=== PATIENT | male | born 1980 | race Caucasian/White ===

== ENCOUNTER → 2016-09-01 | Outpatient (CLI) | payer MEDICAID ==
[2016-09-01 11:27] LABS: Basophils % (A) 0 %; CH 31.9; CHCM 34.7; Eosinophils # (A) 0.1 k/uL (0-0.7); Eosinophils % (A) 1 %; HCT 44.6 % (39.0-53.0); HDW 2.74; Luc # (Auto) 0.11; Luc % (Auto) 2; Lymphocytes # (A) 1.1 k/uL (1.0-4.8); Lymphocytes % (A) 23 %; MCH 31.1 pg (25.0-35.0); MCHC 33.8 g/dL (31.0-37.0); MCV 92.3 fL (80.0-100.0); Mean Platelet Volume 7.3; Monocytes # (A) 0.3 k/uL (0-1.0); Monocytes % (A) 6 %; Neutrophils # (A) 3.1 k/uL (1.3-7.7); Neutrophils % (A) 67 %; RBC 4.83 m/uL (4.30-5.90); RDW 12.9 % (11.5-15.5); WBC 4.7 k/uL (3.8-10.6); WBC (Perox) 4.71
--- NOTE | 2016-09-01 11:57 | XR ---
EXAMINATION TYPE: XR ankle limited RT DATE OF EXAM: 09/01/2016 10:25 AM COMPARISON: NONE HISTORY: Ankle pain TECHNIQUE: 2 view right ankle FINDINGS: No acute fractures are evident. The ankle mortise appears intact. Soft tissues are normal. IMPRESSION: 1. Normal 2 view right ankle
[2016-09-01 12:53] LABS: ALT 24 U/L (21-72); AST 18 U/L (17-59); Alkaline Phosphatase 48 U/L (38-126); Anion Gap 9 mmol/L; Blood Urea Nitrogen 11 mg/dL (9-20); Calcium 9.8 mg/dL (8.4-10.2); Carbon Dioxide 32 mmol/L (22-30); Chloride 102 mmol/L (98-107); Glucose 92 mg/dL (74-99); Non-African American GFR(MDRD) >60 (>60 ml/min/1.73 sqM); Potassium 4.6 mmol/L (3.5-5.1); Sodium 143 mmol/L (137-145); Total Bilirubin 0.9 mg/dL (0.2-1.3); Total Protein 7.4 g/dL (6.3-8.2)
[2016-09-01 13:38] LABS: Vitamin B12 182 pg/mL (239-931)
== END | disposition home or self-care (01) ==
LOC: RADXRMAIN 10:06
PROVIDERS: ATTEND Nurse Practitioner Acute Care
DX: M25.571 Pain in right ankle and joints of right foot (principal); G35 Multiple sclerosis; E55.9 Vitamin D deficiency, unspecified
CPT/HCPCS: 36415; 80053; 82306; 82607; 84439; 84443; 84481; 85025

== ENCOUNTER → 2016-09-23 | Outpatient (CLI) | payer MEDICAID ==
--- NOTE | 2016-09-23 09:51 | MR ---
EXAMINATION TYPE: MR lumbar spine wo con DATE OF EXAM: 09/23/2016 9:18 AM COMPARISON: NONE HISTORY: lumbago Multiplanar, MultiSpin echo imaging of the lumbar spine was performed. L1-L2: Normal disc appearance without desiccation. No herniation, protrusion or disc bulging. No ca nal stenosis is present. Foramina are patent bilaterally. L2-L3: Normal disc appearance without desiccation. No herniation, protrusion or disc bulging. No ca nal stenosis is present. Foramina are patent bilaterally. L3-L4: Normal disc appearance without desiccation. No herniation, protrusion or disc bulging. No ca nal stenosis is present. Foramina are patent bilaterally. L4-L5: Minimal disc desiccation noted posteriorly. Minimal disc bulging identified. No herniation pro trusion or central stenosis. Foramina are patent bilaterally. L5-S1: Minimal disc desiccation noted posteriorly. Minimal disc bulging identified. No herniation pro trusion or central stenosis. Foramina are patent bilaterally. Lumbar segments are intact. No paraspinal masses are identified. Conus medullaris has a normal appe arance. IMPRESSION: 1. Minimal disc desiccation and disc bulging as discussed.
--- NOTE | 2016-09-23 10:06 | MR ---
MRI BRAIN WITH CONTRAST CLINICAL HISTORY: MS follow-up TECHNIQUE: Multiplanar, multisequence imaging of the brain and brainstem is performed without and wit h IV contrast, the cc of Gadolinium is administered intravenously. Demyelinating disease protocol wi th additional Sagittal Flair sequence performed. Comparison: 05/06/2015 FINDINGS: T2 Lesions Present : Yes Approximate Number of Lesions: 40 Locations Identified : Pericallosal and periventricular in location. Left cerebral peduncle lesion is stable. Quinteros finger morphology. Size of Largest Lesion(s): Largest lesion measures 8 mm right frontal lobe. Enhancing Lesion(s) Present: None Change from Prior: Overall stable appearance. Diffusion weighted images demonstrate no evidence of a recent infarct or other diffusion abnormality. There is no worrisome extra-axial fluid collection. The ventricular system and cisternal spaces ar e normal in size and appearance. The brain volume is age appropriate. Midline structures demonstrate normal morphology. The craniocervical junction appears within normal limits. Post contrast images demonstrate no abnormal enhancement. The dural venous sinuses appear pa tent. Chronic right-sided mastoiditis. IMPRESSION: 1. Stable features of multiple sclerosis.
== END | disposition home or self-care (01) ==
LOC: RADMRIMAIN 08:13
PROVIDERS: ATTEND Nurse Practitioner Acute Care
DX: G35 Multiple sclerosis (principal); M51.26 Other intervertebral disc displacement, lumbar region
CPT/HCPCS: 70553; 72148; A9577

== ENCOUNTER → 2016-12-08 | Outpatient (CLI) | payer MEDICAID | END | disposition home or self-care (01) | LOC: LABWHC1 12:05 | PROVIDERS: ATTEND Nurse Practitioner Acute Care | DX: E55.9 Vitamin D deficiency, unspecified (principal) | CPT/HCPCS: 36415; 82306 ==

== ENCOUNTER → 2016-12-23 | Outpatient (CLI) | payer MEDICAID ==
[2016-12-23 12:35] LABS: Basophils % (A) 1 %; CHCM 35.5; Eosinophils % (A) 1 %; HCT 43.7 % (39.0-53.0); HDW 2.68; HGB 15.1 gm/dL (13.0-17.5); Luc # (Auto) 0.07; Luc % (Auto) 2; Lymphocytes # (A) 1.2 k/uL (1.0-4.8); Lymphocytes % (A) 27 %; MCH 32.2 pg (25.0-35.0); MCHC 34.6 g/dL (31.0-37.0); MCV 93.1 fL (80.0-100.0); Monocytes # (A) 0.3 k/uL (0-1.0); Monocytes % (A) 6 %; Neutrophils # (A) 2.8 k/uL (1.3-7.7); Neutrophils % (A) 64 %; RDW 13.4 % (11.5-15.5); WBC 4.3 k/uL (3.8-10.6); WBC (Perox) 4.53
[2016-12-23 13:17] LABS: ALT 31 U/L (21-72); AST 18 U/L (17-59); Alkaline Phosphatase 57 U/L (38-126); Anion Gap 10 mmol/L; Blood Urea Nitrogen 12 mg/dL (9-20); Calcium 9.6 mg/dL (8.4-10.2); Carbon Dioxide 27 mmol/L (22-30); Chloride 106 mmol/L (98-107); Glucose 94 mg/dL (74-99); Non-African American GFR(MDRD) >60 (>60 ml/min/1.73 sqM); Potassium 4.1 mmol/L (3.5-5.1); Sodium 143 mmol/L (137-145); Total Bilirubin 0.7 mg/dL (0.2-1.3); Total Protein 6.9 g/dL (6.3-8.2)
[2016-12-23 14:04] LABS: Vitamin B12 193 pg/mL (239-931)
== END | disposition home or self-care (01) ==
LOC: LABWHC1 11:53
PROVIDERS: ATTEND Psychiatry & Neurology Pain Medicine
DX: G35 Multiple sclerosis (principal); E53.9 Vitamin B deficiency, unspecified
CPT/HCPCS: 36415; 80053; 82607; 85025

== ENCOUNTER → 2017-05-30 | Outpatient (CLI) | payer MEDICAID ==
--- NOTE | 2017-05-30 09:44 | MR ---
EXAMINATION TYPE: MR cervical spine wo/w con DATE OF EXAM: 05/30/2017 COMPARISON: NONE HISTORY: MS TECHNIQUE: Multiplanar, multisequence images of the cervical spine were acquired utilizing 7.5 mL intravenous Ga davist gadolinium contrast. Diffusion weighted imaging was performed. FINDINGS: Cervical vertebral bodies maintain normal vertebral body height and alignment. Minimal multilevel dis c desiccation is noted. Cervical spinal cord maintains a normal signal and morphology without focal d emyelinating plaque identified. No abnormal enhancement is seen within the cervical cord. Visualized portions of the posterior fossa are also unremarkable. C2-C3: No evidence for degenerative disc disease. No disc bulge/herniation or protrusion. No Canal stenosis. Foramina are patent bilaterally. C3-C4: Mild left facet arthropathy and uncovertebral hypertrophy are seen minimally narrowing the lef t neural foramen. Right neural foramen and spinal canal are patent. C4-C5: No evidence for degenerative disc disease. No disc bulge/herniation or protrusion. No Canal stenosis. Foramina are patent bilaterally. C5-C6: There is a right paracentral disc herniation minimally narrowing the ventral subarachnoid spac e without impression upon the cervical cord. No resultant neural foraminal narrowing is seen. Minimal spinal canal stenosis. C6-C7: No evidence for degenerative disc disease. No disc bulge/herniation or protrusion. No Canal stenosis. Foramina are patent bilaterally. C7-T1: No evidence for degenerative disc disease. No disc bulge/herniation or protrusion. No Canal stenosis. Foramina are patent bilaterally. Craniovertebral junction relationships are within normal limits. IMPRESSION: 1. No focal abnormal cord signal to suggest demyelinating cervical cord plaque in this patient with a history of multiple sclerosis. No abnormal enhancement throughout the cervical cord. 2. Right paracentral disc herniation creating minimal spinal canal stenosis at C5-C6. No neural s[place] inal narrowing. 3. Degenerative changes at C3-C4 creating minimal left neural foraminal narrowing.
== END | disposition home or self-care (01) ==
LOC: RADMRIMAIN 07:42
PROVIDERS: ATTEND Psychiatry & Neurology Pain Medicine
DX: M48.02 Spinal stenosis, cervical region (principal); M99.71 Connective tissue and disc stenosis of intervertebral foramina of cervical region; M50.20 Other cervical disc displacement, unspecified cervical region; M47.812 Spondylosis without myelopathy or radiculopathy, cervical region
CPT/HCPCS: 72156; A9581

== ENCOUNTER → 2017-07-05 | Outpatient (CLI) | payer MEDICAID | END | disposition home or self-care (01) | LOC: LABWHC1 15:43 | PROVIDERS: ATTEND Psychiatry & Neurology Pain Medicine | DX: R00.2 Palpitations (principal) | CPT/HCPCS: 93005 ==

== ENCOUNTER 2017-11-15 14:30 | Emergency (ER) | payer MEDICAID ==
[2017-11-15 14:35] VITALS: TEMP 98.2
[2017-11-15] MEDS ORDERED: SODIUM CHLORIDE 0.9% 1,000 ML IV ONE (15:20)
--- NOTE | 2017-11-15 15:40 | ED ---
Abdominal Pain HPI - General Chief Complaint: Abdominal Pain Stated Complaint: right side pain/vomiting Time Seen by Provider: 11/15/17 14:40 Source: patient Mode of arrival: ambulatory Limitations: no limitations - History of Present Illness Initial Comments: This is a 36-year-old male past medical history of MS who presents today for chief complaint of left sided abdominal pain, and vomiting. Patient states that for the past week he has had on and off watery stools, denies hematochezia. Around 1 p.m. he began feeling nauseous and had 1 episode of emesis-denies hematemesis. Shortly after the episode of vomiting he noticed left-sided abdominal pain that radiated to the back. He admitted to decreased appetite today. Patient denies fever or chills, right-sided abdominal pain, chest pain, shortness of breath, dizziness, pallor, diaphoresis, dysuria, urgency, hematuria, frequency, urgency. In addition pt denies any recent fever, chills, shortness of breath, chest pain, back pain, numbness or tingling, dysuria or hematuria, constipation, headaches or visual changes, or any other complaints. - Related Data Home Medications Medication Instructions Recorded Confirmed Tecfidera 240 mg PO BID 09/10/13 11/15/17 Ampyra 100mg 100 mg PO Q12H 11/15/17 11/15/17 Baclofen [Lioresal] 20 mg PO TID 11/15/17 11/15/17 Naltrax 4.5 Mg 4.5 mg PO HS 11/15/17 11/15/17 Allergies Allergy/AdvReac Type Severity Reaction Status Date / Time No Known Allergies Allergy Verified 11/15/17 14:45 Review of Systems ROS Statement: Those systems with pertinent positive or pertinent negative responses have been documented in the HPI. ROS Other: All systems not noted in ROS Statement are negative. Constitutional: Denies: fever, chills Eyes: Denies: eye pain, vision change ENT: Denies: ear pain, throat pain Respiratory: Denies: cough, dyspnea, hemoptysis Cardiovascular: Denies: chest pain, palpitations, edema Endocrine: Denies: fatigue Gastrointestinal: Reports: as per HPI, abdominal pain, nausea, vomiting, diarrhea. Denies: constipation, hematemesis, melena, hematochezia Genitourinary: Denies: urgency, dysuria, frequency, hematuria, testicular pain Musculoskeletal: Reports: as per HPI. Denies: joint swelling, arthralgia Skin: Denies: rash, lesions Neurological: Denies: headache, weakness, numbness, paresthesias Past Medical History Additional Past Medical History / Comment(s): MULTIPLE SCLEROSIS History of Any Multi-Drug Resistant Organisms: None Reported Additional Past Surgical History / Comment(s): HYDROCELE REMOVAL/ORAL SURG Past Anesthesia/Blood Transfusion Reactions: No Reported Reaction Past Psychological History: No Psychological Hx Reported Smoking Status: Never smoker Past Alcohol Use History: Occasional Past Drug Use History: None Reported General Exam - General Exam Comments Initial Comments: General: The patient is awake and alert, in no distress, and does not appear acutely ill. Eye: Pupils are equal, round and reactive to light, extra-ocular movements are intact. No nystagmus. There is normal conjunctiva bilaterally. No signs of icterus. Ears, nose, mouth and throat: There are moist mucous membranes and no oral lesions. Neck: The neck is supple, there is no tenderness or JVD. Cardiovascular: There is a regular rate and rhythm. No murmur, rub or gallop is appreciated. Respiratory: Lungs are clear to auscultation, respirations are non-labored, breath sounds are equal. No wheezes, stridor, rales, or rhonchi. Gastrointestinal: Inspection of abdomen no scars, striae, erythema or ecchymosis. Soft, non-distended, without pulsatile masses, masses or organomegaly noted. Tenderness to palpation of LUQ, epigastric regions. Remainding 3 abdominal quadrants without tenderness to palpation. There is no rebound or guarding present. No CVA tenderness. Bowel sounds are unremarkable.No signs of perineal irritation (-) heel jar, obturator. Musculoskeletal: Normal ROM, no tenderness. Strength 5/5. Sensation intact. Pulses equal bilaterally 2+. Neurological: A&O x 3. CN II-XII intact, There are no obvious motor or sensory deficits. Coordination appears grossly intact. Speech is normal. Skin: Skin is warm and dry and no rashes or lesions are noted. Psychiatric: Cooperative, appropriate mood & affect, normal judgment. Limitations: no limitations Course Vital Signs 11/15/17 11/15/17 14:33 17:02 Temperature 98.2 F Pulse Rate 72 85 Respiratory 20 18 Rate Blood Pressure 116/71 127/73 O2 Sat by Pulse 99 99 Oximetry Medical Decision Making - Medical Decision Making This is a 36-year-old male past medical history of MS who presents today for chief complaint of left sided abdominal pain, and vomiting. Patient states that for the past week he has had on and off watery stools, denies hematochezia. Around 1 p.m. he began feeling nauseous and had 1 episode of emesis-denies hematemesis. Shortly after the episode of vomiting he noticed left-sided abdominal pain that radiated to the back. He admitted to decreased appetite today. Patient denies fever or chills, right-sided abdominal pain, chest pain, shortness of breath, dizziness, pallor, diaphoresis, dysuria, urgency, hematuria, frequency, urgency. In addition pt denies any recent fever, chills, shortness of breath, chest pain, back pain, numbness or tingling, dysuria or hematuria, constipation, headaches or visual changes, or any other complaints. Physical exam revealed mild epigastric and LUQ pain, (-) CVA tenderness. KUB, UA, CBC, CMP, lipase and amylase WNL. We discussed that a kidney stone was possible diagnosis and we cannot exclude the diagnosis without a CT. His was worried about a AAA but given no risk factors, or pulsatile mass, equal LE pulses, that this was not a likely diagnosis but we cannot rule it out without further imagine. Pt called while I was in room i discussed the results of testing so far today. They decided to not have a CT although I had already order the CT. Pt was persistent on not having one due to cost. I urged CT, and I told him to come into the emergency department if symptoms worsen or change. Pt agreed. Case was discussed in detail with Dr. Jalloh who agrees with the plan at this time. Pt was discharged in stable condition with dx of abdominal pain and told to f/u with PCP in 1-2 days. - Lab Data Result diagrams: 11/15/17 15:45 11/15/17 15:45 Lab Results 11/15/17 11/15/17 11/15/17 Range/Units 15:45 15:45 16:15 WBC 4.8 (3.8-10.6) k/uL RBC 4.79 (4.30-5.90) m/uL Hgb 14.9 (13.0-17.5) gm/dL Hct 42.8 (39.0-53.0) % MCV 89.3 (80.0-100.0) fL MCH 31.1 (25.0-35.0) pg MCHC 34.8 (31.0-37.0) g/dL RDW 12.2 (11.5-15.5) % Plt Count 194 (150-450) k/uL Neutrophils % 68 % Lymphocytes % 22 % Monocytes % 7 % Eosinophils % 1 % Basophils % 1 % Neutrophils # 3.3 (1.3-7.7) k/uL Lymphocytes # 1.1 (1.0-4.8) k/uL Monocytes # 0.3 (0-1.0) k/uL Eosinophils # 0.1 (0-0.7) k/uL Basophils # 0.0 (0-0.2) k/uL Sodium 141 (137-145) mmol/L Potassium 4.3 (3.5-5.1) mmol/L Chloride 101 (98-107) mmol/L Carbon Dioxide 30 (22-30) mmol/L Anion Gap 10 mmol/L BUN 11 (9-20) mg/dL Creatinine 0.72 (0.66-1.25) mg/dL Est GFR (CKD-EPI)AfAm >90 (>60 ml/min/1.73 sqM) Est GFR (CKD-EPI)NonAf >90 (>60 ml/min/1.73 sqM) Glucose 94 (74-99) mg/dL Calcium 9.6 (8.4-10.2) mg/dL Total Bilirubin 0.7 (0.2-1.3) mg/dL AST 19 (17-59) U/L ALT 29 (21-72) U/L Alkaline Phosphatase 49 (38-126) U/L Total Protein 7.1 (6.3-8.2) g/dL Albumin 4.6 (3.5-5.0) g/dL Amylase 61 (30-110) U/L Lipase 95 (23-300) U/L Urine Color Yellow Urine Appearance Clear (Clear) Urine pH 7.0 (5.0-8.0) Ur Specific Shubuta 1.015 (1.001-1.035) Urine Protein Negative (Negative) Urine Glucose (UA) Negative (Negative) Urine Ketones 2+ H (Negative) Urine Blood Negative (Negative) Urine Nitrite Negative (Negative) Urine Bilirubin Negative (Negative) Urine Urobilinogen <2.0 (<2.0) mg/dL Ur Leukocyte Esterase Negative (Negative) Disposition Clinical Impression: Abdominal pain Disposition: HOME SELF-CARE Condition: Good Instructions: Abdominal Pain (ED) Additional Instructions: Please follow-up with family doctor in the next 2 days.. Please return to emergency room if the symptoms increase or worsen or for any other concerns. Is patient prescribed a controlled substance at d/c from ED?: No Referrals: None,Stated [Primary Care Provider] - 1-2 days Time of Disposition: 16:54
--- NOTE | 2017-11-15 15:41 | XR ---
EXAMINATION TYPE: XR KUB DATE OF EXAM: 11/15/2017 3:29 PM CLINICAL HISTORY: Left-sided abdominal pain and vomiting TECHNIQUE: Two Upright KUB images of the abdomen are obtained. COMPARISON: None. FINDINGS: There is some paucity of bowel gas. Gas is seen in nondistended stomach. Gas is noted in no ndistended small and large bowel loops scattered throughout the abdomen and pelvis. Left-sided pelvic phleboliths are seen. Lung bases are clear. No pneumoperitoneum is present. Visualized osseous struc tures are intact. IMPRESSION: Overall nonspecific but favor nonobstructive bowel gas pattern.
[2017-11-15 15:55] LABS: Basophils % (A) 1 %; Eosinophils # (A) 0.1 k/uL (0-0.7); Eosinophils % (A) 1 %; HCT 42.8 % (39.0-53.0); HGB 14.9 gm/dL (13.0-17.5); Lymphocytes # (A) 1.1 k/uL (1.0-4.8); Lymphocytes % (A) 22 %; MCH 31.1 pg (25.0-35.0); MCHC 34.8 g/dL (31.0-37.0); MCV 89.3 fL (80.0-100.0); Mean Platelet Volume 7.3; Monocytes # (A) 0.3 k/uL (0-1.0); Monocytes % (A) 7 %; Neutrophils # (A) 3.3 k/uL (1.3-7.7); Neutrophils % (A) 68 %; Platelet Count 194 k/uL (150-450); RBC 4.79 m/uL (4.30-5.90); RDW 12.2 % (11.5-15.5); WBC 4.8 k/uL (3.8-10.6)
[2017-11-15 16:05] LABS: ALT 29 U/L (21-72); AST 19 U/L (17-59); Albumin 4.6 g/dL (3.5-5.0); Alkaline Phosphatase 49 U/L (38-126); Amylase 61 U/L (30-110); Anion Gap 10 mmol/L; Blood Urea Nitrogen 11 mg/dL (9-20); Calcium 9.6 mg/dL (8.4-10.2); Carbon Dioxide 30 mmol/L (22-30); Chloride 101 mmol/L (98-107); Glucose 94 mg/dL (74-99); Lipase 95 U/L (23-300); Potassium 4.3 mmol/L (3.5-5.1); Sodium 141 mmol/L (137-145); Total Bilirubin 0.7 mg/dL (0.2-1.3); Total Protein 7.1 g/dL (6.3-8.2)
[2017-11-15 16:26] LABS: Appearance,Urine Clear (Clear); Bilirubin,Urine Negative (Negative); Blood,Urine Negative (Negative); Color,Urine Yellow; Glucose,Urine (UA) Negative (Negative); Ketones,Urine 2+ (Negative); Leukocyte Esterase,Urine Negative (Negative); Nitrite,Urine Negative (Negative); Protein,Urine Negative (Negative); Specific Gravity,Urine 1.015 (1.001-1.035); Urobilinogen,Urine <2.0 mg/dL (<2.0)
[2017-11-15 17:04] VITALS: BP 127/73; PULSE 85; RESP 18
== END 2017-11-15 17:03 | disposition home or self-care (01) ==
LOC: EC 14:30
DX: R10.9 Unspecified abdominal pain (principal); R11.2 Nausea with vomiting, unspecified; G35 Multiple sclerosis; Z98.890 Other specified postprocedural states; Z79.899 Other long term (current) drug therapy
CPT/HCPCS: 36415; 74018; 80053; 81003; 82150; 83690; 85025; 96360; 99284

== ENCOUNTER → 2018-06-27 | Outpatient (CLI) | payer MEDICAID ==
--- NOTE | 2018-06-28 09:15 | MR ---
EXAMINATION TYPE: MR brain/orbits wo/w con DATE OF EXAM: 06/27/2018 COMPARISON: 05/17/2013 MRI brain HISTORY: Dizziness, luba ext weakness/numbness, MS CONTRAST: Performed utilizing 7 mL intravenous Gadavist gadolinium contrast. TECHNIQUE: Multiplanar, multisequence imaging of the brain is performed on a 3.0 Joan magnet. Demye linating disease protocol with additional Sagittal Flair sequence is performed. Study is performed wi thin 24 hours of arrival to the hospital. Dedicated orbital images were obtained. FINDINGS: T2 White Matter Lesions Present : Yes Approximate Number of Lesions: Multiple scattered. There appear to be at least 16 right 17 on the le ft. Locations Identified : Subcortical U fibers, periventricular bilaterally. In number of these are perp endicular to the ventricle which can be suggestive for, although not diagnostic of, multiple sclerosi s. Size of Largest Lesion(s): 1. 0.0 x 0.8 x 0.9 cm. Location: Right frontal lobe periventricular white matter Sequence 901 Image 21 (axial) and Sequence 1001 Image 24 (sagittal). This may be ring-enhancing corresponds to the diffu moncho-weighted imaging. 2. 0.9 x 0.5 x 0.7 cm. Location: Left periventricular Sequence 901 Image 20 (axial) and Sequence 10 01 Image 14 (sagittal). Enhancing Lesion(s) Present: Yes Change from Prior: Stable in appearance, in number, as well as distribution. Diffusion-weighted imaging is performed. Small area of increased signal is in the right centrum semi ovale posterior right frontal lobe. Series 305 image 168. Small plaque may be present. This could co rrespond to a possible ring lesion or other white matter changes identified on inversion recovery. Th is diffusion-weighted changes new. Ventricles and sulci are appropriate for the patient age. Dedicated images are performed through the orbits. The globes are symmetrical. Intraconal and extraco nal fat is normal. Extraocular muscles are unremarkable. Optic nerves appear normal and symmetrical. No abnormalities. The optic chiasm is visualized. The pituitary stalk is midline. There are no abnormal extra-axial fluid collections. The ventricular system and cisternal spaces are normal in size and appearance. The brain volume is age appropriate. The craniocervical junction cassandra ears within normal limits. The dural venous sinuses appear patent. IMPRESSION: 1. Multiple bilateral deep white matter changes which can be compatible with multiple sclerosis in p kathi clinical setting. 2. There may be new diffusion signal abnormality within the right centrum semiovale periventricular p laque. 3. Distribution and appearance white matter changes otherwise appears stable from comparison. 4 Orbits and optic nerves as visualized appear normal.
== END ==
LOC: RADMRIMAIN 15:39
PROVIDERS: ATTEND Psychiatry & Neurology Neurology
DX: R90.89 Other abnormal findings on diagnostic imaging of central nervous system (principal)
CPT/HCPCS: 70543; 70553; A9585

== ENCOUNTER → 2018-07-10 | Outpatient (CLI) | payer MEDICAID ==
[2018-07-10 08:39] LABS: HCT 46.5 % (39.0-53.0); HGB 15.5 gm/dL (13.0-17.5); MCH 31.3 pg (25.0-35.0); MCHC 33.3 g/dL (31.0-37.0); MCV 93.8 fL (80.0-100.0); Mean Platelet Volume 6.5; Platelet Count 188 k/uL (150-450); RBC 4.95 m/uL (4.30-5.90); RDW 12.9 % (11.5-15.5)
[2018-07-10 08:51] LABS: ALT 36 U/L (21-72); AST 18 U/L (17-59); Albumin 4.3 g/dL (3.5-5.0); Alkaline Phosphatase 50 U/L (38-126); Anion Gap 7 mmol/L; Blood Urea Nitrogen 14 mg/dL (9-20); Calcium 9.7 mg/dL (8.4-10.2); Carbon Dioxide 28 mmol/L (22-30); Chloride 106 mmol/L (98-107); Creatine Kinase 24 U/L (55-170); Glucose 90 mg/dL (74-99); Potassium 4.7 mmol/L (3.5-5.1); Sodium 141 mmol/L (137-145); Total Bilirubin 1.2 mg/dL (0.2-1.3); Total Protein 6.8 g/dL (6.3-8.2)
--- NOTE | 2018-07-10 12:21 | MR ---
MRI CERVICAL SPINE: CLINICAL HISTORY: Multiple sclerosis per order. Headaches with right arm pain or weakness per patient . TECHNIQUE: Multiplanar, multisequence imaging of the cervical spine is performed without and with IV contrast, 7.5 cc of gadolinium was given intravenously. Demyelinating disease protocol. COMPARISON: Most recent MRI cervical spine May 30, 2017 FINDINGS: Sagittal images of the cervical spine show the craniocervical junction to appear within nor mal limits. There are suspected two vague T2 hyperintense lesions in the upper cervical spinal cord, one diffusely involves the mid to inferior C2 vertebra measuring roughly 1.4 cm long axis with a seco nd wider lesion near the craniocervical junction both identified sagittal image 7, in retrospect they may have been present on prior study. Suspect additional smaller third lesion posteriorly superior C 6 level seen best on PD sagittal sequence. Cannot exclude 2 additional vague lesion C4 level sagittal image 7 left well-seen on T2 sagittal images. There is diminished AP diameter of the spinal cord bel ow C6-C7 disc space. In retrospect no significant change from prior MRI. Vertebral alignment is stable and anatomic. The vertebral body and intravertebral disk heights are n ormal. Tiny posterior disc herniation C5-C6 level is redemonstrated on sagittal image 7. The bone ma rrow signal intensity is within normal limits. No abnormal enhancement is seen. Axial images redemonstrates right paracentral disc protrusion at C5-C6 level mildly effacing anterola teral thecal sac, bilateral neural foramina are patent. No significant change from prior. There is mc spected focal disc lesion posteriorly just right of midline with subtle T2 hyperintense signal seen i mage 42 at the superior C4 level, in retrospect this was present on prior study and corresponds to th e PD sagittal image. No enhancing cord lesions identified. IMPRESSION: I do suspect vague multifocal demyelinating disease involvement in the cervical spinal co rd as detailed above. In retrospect I felt they were present on prior MRI. No enhancing lesions are i dentified. No significant change from prior MRI with degenerative change C5-C6 level also redemonstra luis manuel.
== END | disposition home or self-care (01) ==
LOC: RADMRIMAIN 08:03
PROVIDERS: ATTEND Psychiatry & Neurology Neurology
DX: G35 Multiple sclerosis (principal); M62.81 Muscle weakness (generalized)
CPT/HCPCS: 80053; 82550; 85027; 72156; A9585

== ENCOUNTER → 2018-07-21 | Outpatient (CLI) | payer MEDICAID ==
[2018-07-21 16:27] LABS: T4, Free (Free Thyroxine) 1.4 ng/dL (0.80-1.80); Vitamin D 25 Hydroxy 19.7 ng/mL (30.0-100.0)
[2018-07-21 16:30] LABS: Folate, Serum 13.2 ng/mL
[2018-07-21 17:02] LABS: Hepatitis B Core IgM Non-Reactive (Non-Reactive); Hepatitis B Surface AB- Quant 3.5 mIU/mL
[2018-07-21 17:28] LABS: HIV 1 AB Non-Reactive (Non-Reactive); HIV AB P24 Non-Reactive (Non-Reactive); HIV P24 AG Non-Reactive (Non-Reactive)
== END | disposition home or self-care (01) ==
LOC: LABWHC1 10:00
PROVIDERS: ATTEND Psychiatry & Neurology Pain Medicine
DX: G35 Multiple sclerosis (principal)
CPT/HCPCS: 36415; 82306; 82607; 82746; 84207; 84425; 84439; 84443; 84481; 84591; 86705; 86706; 87340; 87390

== ENCOUNTER → 2018-09-21 | Outpatient (CLI) | payer MEDICAID ==
[2018-09-21 13:29] LABS: Appearance,Urine Clear (Clear); Bilirubin,Urine Negative (Negative); Blood,Urine Negative (Negative); Color,Urine Yellow; Glucose,Urine (UA) Negative (Negative); Ketones,Urine Negative (Negative); Leukocyte Esterase,Urine Negative (Negative); Nitrite,Urine Negative (Negative); PH, Urine 5.5 (5.0-8.0); Protein,Urine Negative (Negative); Specific Gravity,Urine 1.027 (1.001-1.035); Urobilinogen,Urine <2.0 mg/dL (<2.0)
[2018-09-21 19:07] LABS: Vitamin D 25 Hydroxy 42.6 ng/mL (30.0-100.0)
== END | disposition home or self-care (01) ==
LOC: LABWHC1 11:52
PROVIDERS: ATTEND Psychiatry & Neurology Neurology
DX: G35 Multiple sclerosis (principal); E53.9 Vitamin B deficiency, unspecified; E55.9 Vitamin D deficiency, unspecified
CPT/HCPCS: 36415; 81003; 82306; 82607; 84207; 87086

== ENCOUNTER → 2018-09-27 | Outpatient (CLI) | payer MEDICAID ==
--- NOTE | 2018-09-27 14:12 | MR ---
EXAMINATION TYPE: MR thoracic spine wo/w con DATE OF EXAM: 09/27/2018 COMPARISON: 05/16/2013, 07/10/2018 HISTORY: MS CONTRAST: Standard multiplanar, multisequence MRI departmental protocol utilizing 7 mL intravenous Gadavist nina olinium contrast. FINDINGS: The recently noted areas of abnormal signal in the cervical spinal cord is seen on the loca lizer image. At the level of T2-T3, T10-11, and T9-T10 there is vague increased signal within the spinal cord. No enhancement at any of the levels. At T5-T6 there is left paracentral disc bulging. Minimal disc bulging paracentrally left at T5-6 and T6-T7 Central disc tiny protrusion T8-T9. Mild effacement of thecal sac but no spinal cord contact. Alignment is anatomic. There is multilevel mild degenerative disc disease. No compression deformities . No foraminal or canal stenosis. IMPRESSION: 1. There is multifocal vague areas of increased signal within the spinal cord with no evidence of enh ancement at levels T2-3, T10-11, and T9-T10 correlate for myelitis. 2. Multilevel disc bulging with tiny disc protrusion at T8-T9 but no evidence of canal stenosis or fo raminal encroachment.
== END ==
LOC: RADMRIMAIN 09:45
PROVIDERS: ATTEND Psychiatry & Neurology Neurology
DX: M51.24 Other intervertebral disc displacement, thoracic region (principal); G35 Multiple sclerosis
CPT/HCPCS: 72157; A9585

== ENCOUNTER → 2018-09-29 | Outpatient (CLI) | payer MEDICAID ==
--- NOTE | 2018-09-29 15:53 | US ---
EXAMINATION TYPE: US bladder DATE OF EXAM: 09/29/2018 COMPARISON: NONE CLINICAL HISTORY: MS,FREQ URINATION. frequent urination, MS EXAM MEASUREMENTS: Color Doppler performed to assess ureteral jets. Bilateral Jets seen: no Normal Post Void Residual (less than 50ml): no Post void residual is 69.76 mm IMPRESSION: 1. Mild urinary retention.
== END | disposition home or self-care (01) ==
LOC: RADUSWWP 14:55
PROVIDERS: ATTEND Psychiatry & Neurology Neurology
DX: R33.9 Retention of urine, unspecified (principal); R35.0 Frequency of micturition; N31.9 Neuromuscular dysfunction of bladder, unspecified; G35 Multiple sclerosis
CPT/HCPCS: 76857

== ENCOUNTER → 2019-06-28 | Outpatient (CLI) | payer MEDICAID ==
[2019-06-28 10:05] LABS: Basophils % (A) 0 %; Eosinophils % (A) 1 %; HCT 42.8 % (39.0-53.0); HGB 14.8 gm/dL (13.0-17.5); Lymphocytes # (A) 0.7 k/uL (1.0-4.8); Lymphocytes % (A) 24 %; MCH 31.6 pg (25.0-35.0); MCHC 34.6 g/dL (31.0-37.0); MCV 91.4 fL (80.0-100.0); Mean Platelet Volume 8.4; Monocytes # (A) 0.2 k/uL (0-1.0); Monocytes % (A) 6 %; Neutrophils # (A) 2.1 k/uL (1.3-7.7); Neutrophils % (A) 66 %; Platelet Count 174 k/uL (150-450); RBC 4.68 m/uL (4.30-5.90); RDW 12.2 % (11.5-15.5); WBC 3.1 k/uL (3.8-10.6)
[2019-06-28 14:52] LABS: Appearance,Urine Clear (Clear); Color,Urine Yellow; Specific Gravity,Urine 1.005 (1.001-1.035)
[2019-06-28 14:53] LABS: Bilirubin,Urine Negative (Negative); Blood,Urine Negative (Negative); Glucose,Urine (UA) Negative (Negative); Ketones,Urine Negative (Negative); Leukocyte Esterase,Urine Negative (Negative); Nitrite,Urine Negative (Negative); Protein,Urine Negative (Negative); Urobilinogen,Urine <2.0 mg/dL (<2.0)
[2019-06-28 16:16] LABS: Albumin 4.6 g/dL (3.80-4.90); Albumin/Globulin Ratio 2.42 (1.60-3.17); Anion Gap 4.9 mmol/L (4.00-12.00); BUN/Creat Ratio 12.22 Ratio (12.00-20.00); Calcium 9.8 mg/dL (8.7-10.3); Carbon Dioxide 32.1 mmol/L (21.6-31.8); Chol/HDL Ratio 2.66; Globulin 1.9 g/dL (1.6-3.3); LDL Cholesterol,Calculated 41.2 mg/dL (0.0-131.0); Non-African American GFR(CKD) 108.7 (60.0-200.0); Total Bilirubin 0.8 mg/dL (0.2-1.2); Total Protein 6.5 g/dL (6.2-8.2); VLDL Calculation 16.8 mg/dL (5.00-40.00)
[2019-06-28 17:33] LABS: Hemoglobin A1C 4.3 % (4.0-6.0)
== END | disposition home or self-care (01) ==
LOC: LABWHC1 09:10
PROVIDERS: ATTEND Family Medicine
DX: Z00.00 Encounter for general adult medical examination without abnormal findings (principal); R35.0 Frequency of micturition; N52.9 Male erectile dysfunction, unspecified; G35 Multiple sclerosis; T50.905A Adverse effect of unspecified drugs, medicaments and biological substances, initial encounter
CPT/HCPCS: 36415; 80053; 80061; 81003; 83036; 84153; 84402; 84403; 84443; 85025

== ENCOUNTER → 2019-08-10 | Outpatient (CLI) | payer MEDICAID ==
[2019-08-10 12:23] LABS: Basophils % (A) 1 %; Eosinophils # (A) 0.1 k/uL (0-0.7); Eosinophils % (A) 2 %; HCT 42.5 % (39.0-53.0); HGB 14.6 gm/dL (13.0-17.5); Lymphocytes # (A) 1.2 k/uL (1.0-4.8); Lymphocytes % (A) 27 %; MCH 31.8 pg (25.0-35.0); MCHC 34.4 g/dL (31.0-37.0); MCV 92.6 fL (80.0-100.0); Mean Platelet Volume 8.4; Monocytes # (A) 0.3 k/uL (0-1.0); Monocytes % (A) 7 %; Neutrophils # (A) 2.8 k/uL (1.3-7.7); Neutrophils % (A) 61 %; Platelet Count 185 k/uL (150-450); RBC 4.59 m/uL (4.30-5.90); RDW 12.4 % (11.5-15.5); WBC 4.6 k/uL (3.8-10.6)
== END | disposition home or self-care (01) ==
LOC: LABWHC1 10:23
PROVIDERS: ATTEND Family Medicine
DX: D72.819 Decreased white blood cell count, unspecified (principal); E55.9 Vitamin D deficiency, unspecified
CPT/HCPCS: 36415; 82306; 85025

== ENCOUNTER → 2019-12-24 | Outpatient (CLI) | payer MEDICAID ==
--- NOTE | 2019-12-25 07:57 | MR ---
EXAMINATION TYPE: MR brain/cspine wo/w DATE OF EXAM: 12/24/2019 COMPARISON: MRI brain June 27, 2018. MRI cervical spine May 17, 2013. HISTORY: MS TECHNIQUE: Multiplanar, multisequence images of the cervical spine, brain, and brainstem are all performed witho ut and with IV contrast, utilizing 7 mL intravenous Gadavist gadolinium contrast is administered intr avenously. Demyelinating disease protocol with additional Sagittal Flair sequence performed. BRAIN: FINDINGS: T2 Lesions Present : Yes Approximate Number of Lesions: Approximately 40 Locations Identified : Scattered but greatest periventricular and pericallosal levels. Smaller superi or subcortical lesions redemonstrated. Bilateral superior temporal lesions noted . Size of Reference Lesion(s): 1. 1.0 x 0.9 x 0.7 cm on axial image 20 and sagittal image 25 deep right frontal periventricular lesi on stable 2 0.9 x 0.5 x 0.6 cm on axial image 19 and sagittal image 14 left parietal periventricular lesion sta ble Enhancing Lesion(s) Present: No T1 Hypointense Lesion(s) Present: Yes Change from Prior: Stable Diffusion weighted images demonstrate no evidence of a recent infarct or other diffusion abnormality. There is no worrisome extra-axial fluid collection. The ventricular system and cisternal spaces ar e normal in size and appearance. The brain volume is age appropriate. Midline structures redemonstrate normal morphology. The craniocervical junction appears within arcenio l limits. Post contrast images demonstrate no abnormal enhancement. The dural venous sinuses appear patent. Few tiny mucous retention cysts and/or polyps in the left frontal sinus are thought to remai n present. The visualized sinuses are otherwise clear and the globes are intact. IMPRESSION: Fairly moderate white matter changes redemonstrated felt to be on basis of patient's know n multiple sclerosis. No new or enhancing lesions are evident. C-SPINE: Slightly suboptimal study due to motion artifact degradation. FINDINGS: Sagittal images of the cervical spine show the craniocervical junction to appear within nor mal limits. The cervical and upper thoracic spinal cord is normal in course, caliber, and signal. V ertebral alignment is anatomic. The vertebral body and intravertebral disk heights are normal. The bone marrow signal intensity is within normal limits. No suspicious postcontrast enhancement. Axial images show there is no significant focal disk disease, spinal canal stenosis, neural foraminal narrowing, or spinal cord compromise at any cervical level. Artifact degradation noted evaluation mc boptimal. IMPRESSION: Suboptimal study without convincing evidence of new demyelinating disease involvement in the cervical spinal cord.
== END | disposition home or self-care (01) ==
LOC: RADMRIMAIN 06:07
PROVIDERS: ATTEND Psychiatry & Neurology Neurology
DX: G35 Multiple sclerosis (principal)
CPT/HCPCS: 70553; 72156; A9585

== ENCOUNTER → 2019-12-28 | Outpatient (CLI) | payer MEDICAID ==
--- NOTE | 2019-12-28 07:26 | MR ---
EXAMINATION TYPE: MR thoracic spine wo/w con DATE OF EXAM: 12/28/2019 COMPARISON: NONE HISTORY: MS TECHNIQUE: Multiplanar, multisequence imaging of thoracic spine is performed without and with IV cont rast, patient injected with 7 cc of gadolinium this study. FINDINGS: Spinal cord demonstrates slight expansion and increased signal from the mid T1 vertebra thr ough the superior T3 disc space similar to prior study seen best sagittal image 8. There is additiona lly elongated vague T2 hyperintense lesion from the mid T8 vertebra through the mid-T9 vertebra sagit merced image 7. Findings felt stable from prior study. No new lesions clearly seen. No enhancing lesions evident. Vertebral body heights and alignment remain satisfactory. Some multilevel disc desiccation upper to midthoracic spine remains present. Bone marrow signal intensity is preserved. Persistent tin y posterior disc herniation effacing anterior thecal sac at T5-T6 level sagittal image 7. Review of the axial images shows stable tiny central disc protrusion at T6-T7 level effacing the ante rior thecal sac axial image 3 series 801 and right paracentral region axial image 14 series 701 at T8 -T9 level. Spinal cord vague T2 hyperintense lesions less well seen on axial or sagittal images. Vis ualized thorax and upper abdomen are unremarkable. No suspicious enhancement is noted. IMPRESSION: No significant change from prior MRI. 2 lesions or areas of involvement are felt present , one in the upper thoracic spine and second lesion in the mid to lower thoracic spine. No new or enh ancing lesions evident.
== END | disposition home or self-care (01) ==
LOC: RADMRIMAIN 05:54
PROVIDERS: ATTEND Psychiatry & Neurology Neurology
DX: G35 Multiple sclerosis (principal)
CPT/HCPCS: 72157; A9585

== ENCOUNTER → 2021-06-10 | Outpatient (CLI) | payer MEDICAID ==
[2021-06-10 19:21] LABS: Basophils # (A) 0.02 X 10*3/uL (0.00-0.10); Basophils % (A) 0.4 %; Eosinophils # (A) 0.07 X 10*3/uL (0.04-0.35); Eosinophils % (A) 1.4 %; HCT 42.3 % (39.6-50.0); HGB 14.3 g/dL (13.0-17.0); Lymphocytes # (A) 1.51 X 10*3/uL (0.90-5.00); Lymphocytes % (A) 30.8 %; MCH 31.9 pg (27.0-32.0); MCHC 33.8 g/dL (32.0-37.0); MCV 94.4 fL (80.0-97.0); Mean Platelet Volume 11.3 fL (9.5-12.2); Monocytes # (A) 0.35 X 10*3/uL (0.20-1.00); Monocytes % (A) 7.1 %; Neutrophils # (A) 2.94 X 10*3/uL (1.80-7.70); Neutrophils % (A) 60.1 %; Platelet Count 185 X 10*3/uL (140-440); RBC 4.48 X 10*6/uL (4.40-5.60); RDW 11.9 % (11.5-14.5)
[2021-06-10 20:10] LABS: African American GFR (CKD) 132.6 (60.0-200.0); Albumin 4.7 g/dL (3.8-4.9); Albumin/Globulin Ratio 2.44 (1.60-3.17); Anion Gap 10.4 mmol/L (10.00-18.00); BUN/Creat Ratio 17.43 Ratio (12.00-20.00); Blood Urea Nitrogen 13.4 mg/dL (9.0-27.0); Calcium 9.6 mg/dL (8.7-10.3); Carbon Dioxide 28.3 mmol/L (20.0-27.5); Globulin 1.9 g/dL (1.6-3.3); Non-African American GFR(CKD) 114.4 (60.0-200.0); Potassium 4.6 mmol/L (3.5-5.5); Total Bilirubin 0.3 mg/dL (0.30-1.20); Total Protein 6.7 g/dL (6.2-8.2)
== END | disposition home or self-care (01) ==
LOC: LABWHC1 10:47
PROVIDERS: ATTEND Psychiatry & Neurology Neurology
DX: E53.9 Vitamin B deficiency, unspecified (principal)
CPT/HCPCS: 36415; 80053; 82607; 84207; 85025

== ENCOUNTER → 2022-02-19 | Outpatient (CLI) | payer MEDICAID ==
--- NOTE | 2022-02-19 15:13 | MR ---
EXAMINATION TYPE: MR brain/cspine wo/w DATE OF EXAM: 02/19/2022 COMPARISON: 12/24/2019 HISTORY: 41-year-old male G3 5, MS TECHNIQUE: Multiplanar, multisequence images of the brain and brainstem is performed without and with IV contrast, utilizing 7 mL intravenous Gadavist gadolinium contrast is administered intravenously. Demyelinating disease protocol with additional Sagittal Flair sequence performed. Subsequently pre a nd postcontrast multiplanar cervical spine. FINDINGS: BRAIN: T2 Lesions Present : Yes Approximate Number of Lesions: 20-25 in the left cerebral hemisphere and approximately 20 in the righ t cerebral hemisphere. Locations Identified : Periventricular, left thalamic, pericallosal, and a couple subcortical foci. Size of Reference Lesion(s): 1. 10 x 9 mm anterior right periventricular axial image 18, unchanged. 2 10 x 5 mm posterior left periventricular, axial image 18, unchanged. Enhancing Lesion(s) Present: Yes T1 Hypointense Lesion(s) Present: Yes Change from Prior: Lesions are largely stable. However, there is 1 new 6 mm focus of white matter enh ancement along the anterior left periventricular region, axial image 18. Diffusion weighted images demonstrate no evidence of a recent infarct or other diffusion abnormality. There is no worrisome extra-axial fluid collection. The ventricular system and cisternal spaces ar e normal in size and appearance. The brain volume is age appropriate. Midline structures demonstrate normal morphology. The craniocervical junction appears within normal limits. Post contrast images demonstrate no other abnormal enhancement. The dural venous sinuses appear paten t. Mild mucosal thickening ethmoid air cells. Globes are intact. CERVICAL SPINE: No precervical junction of the body, predental space finding, or prevertebral soft tissue swelling. Preserved alignment of the cervical spine. No suspicious bone marrow replacement. Minimal scattered i ntervertebral disc desiccation throughout. Scattered mild facet arthropathy. There may be minimal narrowing of the left neural foramen at the C4 -C5 level and C3-C4 level. No focal disc herniation or significant spinal canal stenosis. Sagittal PD shows possible very subtle areas of bright signal change, for example, opposite the C2 [place], dorsal right paramedian C3-C4 level, and ventral C6-C7 level. No corresponding postcontrast enhancement. IMPRESSION: BRAIN: 1. Moderate burden of white matter change relating to patient's known MS. Findings are largely stable . However, there is a single new 6 mm enhancing plaque anterior left periventricular white matter. CERVICAL SPINE: 2. Unable to exclude very subtle areas of bright signal at 3 levels within the cervical spinal cord a s mentioned above. Subtle demyelinating plaques not excluded. No enhancing lesions.
== END | disposition home or self-care (01) ==
LOC: RADMRIMAIN 13:13
PROVIDERS: ATTEND Psychiatry & Neurology Neurology
DX: G35 Multiple sclerosis (principal)
CPT/HCPCS: 70553; 72156; A9585

== ENCOUNTER → 2022-03-04 | Outpatient (CLI) | payer MEDICAID ==
[2022-03-04 13:37] LABS: Appearance,Urine Clear (Clear); Bilirubin,Urine Negative (Negative); Blood,Urine Negative (Negative); Color,Urine Yellow; Glucose,Urine (UA) Negative (Negative); Ketones,Urine Negative (Negative); Leukocyte Esterase,Urine Negative (Negative); Nitrite,Urine Negative (Negative); Protein,Urine Negative (Negative); Urobilinogen,Urine <2.0 mg/dL (<2.0)
[2022-03-04 18:24] LABS: Basophils # (A) 0.03 X 10*3/uL (0.00-0.10); Basophils % (A) 0.6 %; Eosinophils # (A) 0.03 X 10*3/uL (0.04-0.35); Eosinophils % (A) 0.6 %; HCT 42.4 % (39.6-50.0); HGB 14.3 g/dL (13.0-17.0); Immature Grans, Automated 0.2 %; Lymphocytes # (A) 1.17 X 10*3/uL (0.90-5.00); Lymphocytes % (A) 23.1 %; MCH 31.6 pg (27.0-32.0); MCHC 33.7 g/dL (32.0-37.0); MCV 93.8 fL (80.0-97.0); Mean Platelet Volume 11.6 fL (9.5-12.2); Monocytes # (A) 0.37 X 10*3/uL (0.20-1.00); Monocytes % (A) 7.3 %; NRBC Per 100 WBC 0 /100 WBCS (0.0-0.0); Neutrophils # (A) 3.45 X 10*3/uL (1.80-7.70); Neutrophils % (A) 68.2 %; Platelet Count 187 X 10*3/uL (140-440); RBC 4.52 X 10*6/uL (4.40-5.60); RDW 11.9 % (11.5-14.5); WBC 5.06 X 10*3/uL (4.50-10.00)
[2022-03-04 19:47] LABS: African American GFR (CKD) 129.5 (60.0-200.0); Albumin 4.8 g/dL (3.8-4.9); Anion Gap 9.2 mmol/L (10.00-18.00); BUN/Creat Ratio 15.13 Ratio (12.00-20.00); Blood Urea Nitrogen 12.1 mg/dL (9.0-27.0); Calcium 9.7 mg/dL (8.7-10.3); Carbon Dioxide 30.8 mmol/L (20.0-27.5); Globulin 2.4 g/dL (1.6-3.3); Non-African American GFR(CKD) 111.7 (60.0-200.0); Potassium 4.2 mmol/L (3.5-5.5); Total Bilirubin 0.2 mg/dL (0.30-1.20); Total Protein 7.2 g/dL (6.2-8.2)
== END | disposition home or self-care (01) ==
LOC: LABWHC1 12:05
PROVIDERS: ATTEND Psychiatry & Neurology Neurology
DX: G35 Multiple sclerosis (principal); Z79.899 Other long term (current) drug therapy
CPT/HCPCS: 36415; 80053; 81003; 85025

== ENCOUNTER → 2022-03-06 | Outpatient (CLI) | payer MEDICAID ==
--- NOTE | 2022-03-07 15:56 | MR ---
EXAMINATION TYPE: MR thoracic spine wo/w con DATE OF EXAM: 03/06/2022 COMPARISON: 12/28/2019 HISTORY: MS follow up, no new symptoms. CONTRAST: Performed utilizing 7.5 mL intravenous Gadavist gadolinium contrast. TECHNIQUE: Multiplanar, multiecho imaging on a 3.0 Joan magnet is performed through the thoracic spi ne. There is increased signal within the spinal cord on the sagittal T2-weighted sequences the T1-2 level extending to the T2-3 level. This extends approximately 2.2 cm. This appears to be present previous ly There is some subtle increased signal within the spinal cord on sagittal T2-weighted images at T8-9 e xtending through the T9 level. This extends 3.1 cm. This was present on the comparison study. A subtle upper intensity may be within the at the T11-12 level within the spinal cord. This extends 1 .0 cm. This appears to be new. No enhancement of these lesions is evident. Cord expansion is not identified in the axial plane. Sign al change appears diffuse axial T2 images. Vertebral body alignment is normal. Vertebral body heights are preserved. Disc heights are preserved. Some disc desiccation is present within the thoracic spine. No spinal canal stenosis is evident. IMPRESSIONS: 1. New hyperintense lesion within the spinal cord at the T11-12 level. Reidentification of upper and mid thoracic spine cord signal abnormality. Findings can be compatible with multiple sclerosis plaqu es.
== END | disposition home or self-care (01) ==
LOC: RADMRIMAIN 10:24
PROVIDERS: ATTEND Psychiatry & Neurology Neurology
DX: G35 Multiple sclerosis (principal); G95.9 Disease of spinal cord, unspecified
CPT/HCPCS: 72157; A9585

== ENCOUNTER → 2022-08-02 | Outpatient (CLI) | payer MEDICAID ==
[2022-08-02 11:36] LABS: Appearance,Urine Clear (Clear); Bilirubin,Urine Negative (Negative); Blood,Urine Negative (Negative); Color,Urine Yellow; Glucose,Urine (UA) Negative (Negative); Ketones,Urine Negative (Negative); Leukocyte Esterase,Urine Negative (Negative); Nitrite,Urine Negative (Negative); PH, Urine 5.5 (5.0-8.0); Protein,Urine Negative (Negative); Specific Gravity,Urine 1.019 (1.001-1.035); Urobilinogen,Urine <2.0 mg/dL (<2.0)
[2022-08-02 18:16] LABS: Basophils # (A) 0.02 X 10*3/uL (0.00-0.10); Basophils % (A) 0.5 %; Eosinophils # (A) 0.04 X 10*3/uL (0.04-0.35); HCT 43.6 % (39.6-50.0); HGB 14.3 g/dL (13.0-17.0); Immature Grans, Automated 0.3 %; Lymphocytes # (A) 1.22 X 10*3/uL (0.90-5.00); MCH 31.1 pg (27.0-32.0); MCHC 32.8 g/dL (32.0-37.0); MCV 94.8 fL (80.0-97.0); Mean Platelet Volume 10.7 fL (9.5-12.2); Monocytes # (A) 0.26 X 10*3/uL (0.20-1.00); Monocytes % (A) 6.6 %; NRBC Per 100 WBC 0 /100 WBCS (0.0-0.0); Neutrophils # (A) 2.39 X 10*3/uL (1.80-7.70); Neutrophils % (A) 60.6 %; Platelet Count 178 X 10*3/uL (140-440); WBC 3.94 X 10*3/uL (4.50-10.00)
[2022-08-02 19:21] LABS: ALT 14 U/L (10-49); AST 15 U/L (14-35); African American GFR (CKD) 123.4 (60.0-200.0); Albumin 4.7 g/dL (3.8-4.9); Albumin/Globulin Ratio 2.24 (1.60-3.17); Alkaline Phosphatase 54 U/L (41-126); BUN/Creat Ratio 14.33 Ratio (12.00-20.00); Blood Urea Nitrogen 12.9 mg/dL (9.0-27.0); Calcium 9.6 mg/dL (8.7-10.3); Carbon Dioxide 31.8 mmol/L (20.0-27.5); Chloride 106 mmol/L (96-109); Chol/HDL Ratio 3.17 Ratio; Globulin 2.1 g/dL (1.6-3.3); Glucose 91 mg/dL (70-110); LDL Cholesterol,Calculated 68.1 mg/dL (0.0-131.0); Non-African American GFR(CKD) 106.5 (60.0-200.0); Potassium 4.6 mmol/L (3.5-5.5); Sodium 145 mmol/L (135-145); Total Protein 6.8 g/dL (6.2-8.2)
== END | disposition home or self-care (01) ==
LOC: LABWHC1 10:09
PROVIDERS: ATTEND Family Medicine
DX: Z00.00 Encounter for general adult medical examination without abnormal findings (principal); Z12.5 Encounter for screening for malignant neoplasm of prostate; Z13.1 Encounter for screening for diabetes mellitus
CPT/HCPCS: 36415; 80053; 80061; 81003; 82306; 83036; 84153; 84443; 85025

== ENCOUNTER → 2023-08-09 | Outpatient (CLI) | payer MEDICAID ==
[2023-08-09 16:02] LABS: Basophils # (A) 0.03 X 10*3/uL (0.00-0.10); Basophils % (A) 0.7 %; Eosinophils # (A) 0.03 X 10*3/uL (0.04-0.35); Eosinophils % (A) 0.7 %; HCT 46.6 % (39.6-50.0); HGB 15.6 g/dL (13.0-17.0); Immature Grans, Automated 0 %; Lymphocytes # (A) 1.17 X 10*3/uL (0.90-5.00); Lymphocytes % (A) 26.9 %; MCH 31.6 pg (27.0-32.0); MCHC 33.5 g/dL (32.0-37.0); MCV 94.3 FL (80.0-97.0); Mean Platelet Volume 11.4 FL (9.5-12.2); Monocytes # (A) 0.34 X 10*3/uL (0.20-1.00); Monocytes % (A) 7.8 %; NRBC Per 100 WBC 0 X 10*3/uL (0.00-0.01); Neutrophils # (A) 2.78 X 10*3/uL (1.80-7.70); Neutrophils % (A) 63.9 %; Platelet Count 195 X 10*3/uL (140-440); RBC 4.94 X 10*6/uL (4.40-5.60); WBC 4.35 X 10*3/uL (4.50-10.00)
[2023-08-09 19:28] LABS: ALT 12 U/L (10-49); AST 17 U/L (14-35); Albumin/Globulin Ratio 2.08 Ratio (1.60-3.17); Alkaline Phosphatase 63 U/L (41-126); BUN/Creat Ratio 17.25 Ratio (12.00-20.00); Blood Urea Nitrogen 13.8 mg/dL (9.0-27.0); Calcium 10.1 mg/dL (8.7-10.3); Carbon Dioxide 28.5 mmol/L (21.6-31.8); Chloride 102 mmol/L (96-109); Chol/HDL Ratio 3.18 Ratio; Globulin 2.4 g/dL (1.6-3.3); Glucose 89 mg/dL (70-110); LDL Cholesterol,Calculated 77.3 mg/dL (0.0-131.0); Potassium 4.6 mmol/L (3.5-5.5); Prostate Specific Antigen 0.99 ng/mL (0.000-2.500); Sodium 144 mmol/L (135-145); Total Bilirubin 0.5 mg/dL (0.3-1.2); Total Protein 7.4 g/dL (6.2-8.2)
== END | disposition home or self-care (01) ==
LOC: LABWHC1 11:31
PROVIDERS: ATTEND Family Medicine
DX: Z00.00 Encounter for general adult medical examination without abnormal findings (principal); G35 Multiple sclerosis; Z79.899 Other long term (current) drug therapy; Z86.39 Personal history of other endocrine, nutritional and metabolic disease
CPT/HCPCS: 36415; 80053; 80061; 82306; 82525; 82607; 83036; 84153; 84207; 84443; 85025